=== PATIENT | female | born 1990 | race Two or more races ===

== ENCOUNTER 2025-03-17 09:12 | Emergency (ER) | payer OTHER ==
[~2025-03-17] VITALS: Ht 165.1 cm; Wt 71.2 kg
[2025-03-17] MEDS ORDERED: LIDOCAINE HCL 1% 10ML VIAL ONE (09:50)
[2025-03-17] MEDS ORDERED: TRAMADOL HCL 50 MG TABLET PO ONE (10:45)
== END 2025-03-17 10:55 | disposition home or self-care (01) ==
LOC: ER 09:12
DX: N75.1 Abscess of Bartholin's gland (principal); Z88.1 Allergy status to other antibiotic agents